=== PATIENT | female | born 1975 | race Two or more races ===

== ENCOUNTER 2019-03-07 22:32 | Emergency (ER) | payer MEDICAID ==
[~2019-03-07] VITALS: Ht 172.7 cm; Wt 100.0 kg
[2019-03-08] MEDS ORDERED: KETOROLAC 60MG/2ML VIAL IM ONE (00:45)
[2019-03-08 01:06] VITALS: BP 132/76
== END 2019-03-08 01:28 | disposition home or self-care (01) ==
LOC: ER 22:32
DX: N64.4 Mastodynia (principal); E03.9 Hypothyroidism, unspecified; F17.210 Nicotine dependence, cigarettes, uncomplicated; Z90.49 Acquired absence of other specified parts of digestive tract; Z98.890 Other specified postprocedural states
CPT/HCPCS: 81025; 99283; J1885

== ENCOUNTER 2019-11-19 12:48 | Emergency (ER) | payer MEDICAID ==
[~2019-11-19] VITALS: Ht 167.6 cm; Wt 68.0 kg
[2019-11-19 13:06] VITALS: BP 137/95
== END 2019-11-19 13:23 | disposition left against medical advice (07) ==
LOC: ER 12:48
DX: Z53.21 Procedure and treatment not carried out due to patient leaving prior to being seen by health care provider (principal)

== ENCOUNTER 2019-11-19 20:56 | Emergency (ER) | payer MEDICAID ==
[~2019-11-19] VITALS: Ht 172.7 cm; Wt 95.2 kg
[2019-11-19 22:49] VITALS: BP 129/89
== END 2019-11-19 22:54 | disposition home or self-care (01) ==
LOC: ER 20:56
DX: B34.9 Viral infection, unspecified (principal); I10 Essential (primary) hypertension; E03.9 Hypothyroidism, unspecified; Z98.890 Other specified postprocedural states
CPT/HCPCS: 99281